=== PATIENT | female | born 1940 | race Caucasian/White ===

== ENCOUNTER 2023-10-22 09:30 | Observation (INO) | payer OTHER ==
[~2023-10-22] VITALS: Ht 167.6 cm; Wt 95.3 kg
[2023-10-29] MEDS ORDERED: CEFAZOLIN SOD 2 GM in D5W 50 ML IV ONE (06:00)
[2023-10-29] MEDS ORDERED: SCOPOLAMINE HYDROBROMIDE 1 MG PATCH .72 H (TRANSDERM-SCOP) TD ONE ×2 (06:00→06:05)
[2023-10-29] MEDS ORDERED: oxyCODONE HCL 10 MG TAB.ER.12H PO ONE ×2 (06:00→06:05)
[2023-10-29] MEDS ORDERED: ACETAMINOPHEN 500 MG TABLET PO ONE (06:00)
[2023-10-29] MEDS ORDERED: CELECOXIB 100 MG CAPSULE PO ONE (06:00)
[2023-10-29] MEDS ORDERED: CELECOXIB 100 MG CAPSULE ONE (06:04)
[2023-10-29] MEDS ORDERED: ACETAMINOPHEN 500 MG TABLET ONE (06:05)
[2023-10-29] MEDS ORDERED: BISACODYL 10 MG/SUPPOSITORY RC PRN (07:15)
[2023-10-29] MEDS ORDERED: METOCLOPRAMIDE HCL 10 MG/2 ML VIAL IVP PRN (07:15)
[2023-10-29] MEDS ORDERED: NALOXONE HCL 0.4 MG/ML AMP (NARCAN) IVP PRN ×5 (07:15→13:00)
[2023-10-29] MEDS ORDERED: LACTULOSE 20 GM/30 ML UDC PO PRN (07:15)
[2023-10-29] MEDS ORDERED: DIPHENHYDRAMINE HCL 25 MG CAPSULE PO PRN (07:15)
[2023-10-29] MEDS ORDERED: PROPOFOL DRIP 100 ML IV ONE (07:18)
[2023-10-29] MEDS ORDERED: MIDAZOLAM HCL 2 MG/2 ML VIAL (VERSED) ONE (07:18)
[2023-10-29] MEDS ORDERED: ePHEDrine sulfate 50 MG/ML VIAL ONE (07:19)
[2023-10-29] MEDS ORDERED: HYDROmorphone 1 MG/ML INJ. CARTRIDGE IVP PRN ×2 (08:45→11:00)
[2023-10-29] MEDS ORDERED: ONDANSETRON HCL 4 MG/2 ML VIAL IVP PRN ×2 (08:45→11:45)
[2023-10-29] MEDS ORDERED: fentaNYL CITRATE/PF 100 MCG/2 ML AMP IVP PRN ×2 (08:45)
[2023-10-29] MEDS ORDERED: LR 1,000 ML IV ONE (08:45)
[2023-10-29] MEDS ORDERED: HYDROmorphone 1 MG/ML INJ. CARTRIDGE ONE (10:51)
[2023-10-29] MEDS: HYDROmorphone 1 MG/ML INJ. CARTRIDGE IVP PRN ×2 (10:55→12:40)
[2023-10-29] MEDS ORDERED: oxyCODONE HCL 5 MG TABLET PO PRN (11:00)
[2023-10-29] MEDS ORDERED: LORATADINE 10 MG TABLET PO PRN (11:00)
[2023-10-29] MEDS ORDERED: KETOROLAC TROMETHAMINE 30 MG VIAL ONE (11:42)
[2023-10-29] MEDS ORDERED: traMADol HCL HCL 50 MG TABLET (ULTRAM) ONE (12:03)
[2023-10-29] MEDS ORDERED: METF-379 PO (12:25)
[2023-10-29] MEDS ORDERED: TRAZ300T11 PO (12:26)
[2023-10-29] MEDS ORDERED: ESCI10TA PO (12:27)
[2023-10-29] MEDS: traMADol HCL HCL 50 MG TABLET (ULTRAM) PO PRN (12:27)
[2023-10-29] MEDS ORDERED: IMIP50TA7 PO (12:28)
[2023-10-29] MEDS ORDERED: TEMA7.5C PO (12:29)
[2023-10-29] MEDS ORDERED: LOSA-413 PO (12:31)
[2023-10-29] MEDS ORDERED: LEVO125T8 PO (12:33)
[2023-10-29] MEDS: HYDROmorphone 1 MG/ML INJ. CARTRIDGE IVP ONE (13:10)
[2023-10-29 14:00] VITALS: BP_SYST 135; PULSE 89; RESP 18; TEMP 97.6; O2SAT 98
[2023-10-29 16:00] VITALS: BP_SYST 126; PULSE 69; RESP 17; TEMP 97.8; O2SAT 97
[2023-10-29] MEDS: ceFAZolin SODIUM 2 GM in D5W 100 ML IV ONE (16:40)
[2023-10-29] MEDS: oxyCODONE HCL 5 MG TABLET PO PRN (18:44)
[2023-10-29 20:00] VITALS: BP_SYST 154; PULSE 101; RESP 18; TEMP 98.6; O2SAT 0; O2SAT 93
[2023-10-29] MEDS: SENNOSIDES/DOCUSATE SODIUM 1 TAB TABLET(SENOKOT-S) PO SCH (20:43)
[2023-10-29] MEDS: ceFAZolin SODIUM 2 GM in D5W 100 ML IV SCH (20:54)
[2023-10-29] MEDS ORDERED: D5W 1,000 ML IV PRN (21:30)
[2023-10-29] MEDS ORDERED: DEXTROSE 50% JECT 50 ML DISP.SYRIN IVP PRN (21:30)
[2023-10-29] MEDS ORDERED: GLUCOSE (DEXTROSE) ORAL GEL -Adults PO PRN (21:30)
[2023-10-29] MEDS: ACETAMINOPHEN 500 MG TABLET PO SCH (22:00)
[2023-10-29] MEDS: KETOROLAC TROMETHAMINE 10 MG TABLET (TORADOL) PO SCH (22:00)
[2023-10-30] VITALS: BP_SYST 134; PULSE 94; RESP 18; TEMP 97.4; O2SAT 96
[2023-10-30 04:00] VITALS: BP_SYST 141; PULSE 79; RESP 18; TEMP 98.6; O2SAT 96
[2023-10-30 04:54] LABS: BASOPHILS % (AUTO) 0.4 % (0.0-2.0); EOSINOPHILS % (AUTO) 0.1 % (0.0-4.0); HEMOGLOBIN 9.8 g/dL (12.0-16.0); LYMPHOCYTES # (AUTO) 2.1 K/uL (1.0-5.5); LYMPHOCYTES % (AUTO) 22.1 % (20.5-51.5); MEAN CORPUSCULAR HEMOGLOBIN 26 pg (27-31); MEAN CORPUSCULAR HGB CONC 33 % (32-36); MEAN CORPUSCULAR VOLUME 78 fL (79.0-98.0); MONOCYTES % (AUTO) 10.6 % (1.7-9.3); NEUTROPHILS # (AUTO) 6.5 K/uL (1.8-7.7); NEUTROPHILS % (AUTO) 66.8 % (40.0-70.0); PLATELET COUNT (AUTO) 324 K/uL (130-430); RED BLOOD CELL COUNT(AUTO) 3.84 MIL/uL (4.2-6.2); WHITE BLOOD COUNT (AUTO) 9.7 K/uL (4.8-10.8)
[2023-10-30 05:37] LABS: ALANINE AMINOTRANSFERASE 31 U/L (12-78); ANION GAP 9 (5-15); ASPARTATE AMINOTRANSFERASE 27 U/L (10-37); CALCIUM 8.3 mg/dL (8.4-11.0); CARBON DIOXIDE 28 mmol/L (23-29); CHLORIDE 99 mmol/L (98-107); CREATININE 0.63 mg/dL (0.55-1.30); GLUCOSE 156 mg/dL (74-106); SODIUM SERUM 136 mmol/L (136-145); TOTAL BILIRUBIN 0.4 mg/dL (0.0-1.0); TOTAL PROTEIN, SERUM 6.9 g/dL (6.4-8.3); UREA NITROGEN, BLOOD 8 mg/dL (8-21)
[2023-10-30 08:17] VITALS: BP_SYST 144; PULSE 84; RESP 18; TEMP 97.6; O2SAT 93
[2023-10-30] MEDS: ASPIRIN 81 MG TAB.CHEW PO SCH (08:40)
[2023-10-30] MEDS: LEVOTHYROXINE SODIUM 0.125 MG TABLET PO SCH (08:41)
[2023-10-30] MEDS: INSULIN REGULAR, HUMAN 100 UNITS/ML, 3 ML VIAL (humuLIN R) SUBCUT PRN (11:31)
[2023-10-30] MEDS: CELECOXIB 200 MG CAPSULE PO SCH (11:37)
[2023-10-30 12:00] VITALS: BP_SYST 139; PULSE 91; RESP 18; TEMP 97.8; O2SAT 94
[2023-10-30 13:13] VITALS: BP_SYST 139; PULSE 91; RESP 18; TEMP 97.8; O2SAT 94
[2023-10-30] MEDS ORDERED: ESCITALOPRAM OXALATE 10 MG TABLET PO SCH (21:00)
[2023-10-30] MEDS ORDERED: LOSARTAN POTASSIUM 50 MG TABLET (COZAAR) PO SCH (21:00)
[2023-10-30] MEDS ORDERED: IMIPRAMINE HCL 50 MG PO SCH (21:00)
[2023-10-30] MEDS ORDERED: TEMAZEPAM 7.5 MG CAPSULE PO SCH (21:00)
== END 2023-10-30 14:15 | disposition home or self-care (01) ==
LOC: INTOOBSV 10-29 05:45 → SMU 10-29 05:45
PROVIDERS: ADMIT Student in an Organized Health Care Education/Training Program; ATTEND Student in an Organized Health Care Education/Training Program
DX: M17.12 Unilateral primary osteoarthritis, left knee (principal); G89.18 Other acute postprocedural pain; I12.9 Hypertensive chronic kidney disease with stage 1 through stage 4 chronic kidney disease, or unspecified chronic kidney disease; E11.22 Type 2 diabetes mellitus with diabetic chronic kidney disease; N18.2 Chronic kidney disease, stage 2 (mild); Z79.899 Other long term (current) drug therapy
CPT/HCPCS: 87081; 27447; 64447; 96365; 96366 ×2; 96375; 96376; 73560; 96379; 97110 ×2; 97530 ×2; 97116 ×2; 97162; 82948 ×2; 88305; 88311; 80053; 85025; 36415; J3490 ×2; J0690; J3465; J2405; J2370; J2704; J3370; J1170; J7060 ×2; J7120; G0378 ×2; C1776 ×3; J0696; J1885